=== PATIENT | female | born 1980 | race African-American/Black ===

== ENCOUNTER 2020-03-01 19:23 | Emergency (ER) | payer MEDICAID ==
[~2020-03-01] VITALS: Ht 162.6 cm; Wt 64.0 kg
[2020-03-01] MEDS ORDERED: ASPIRIN 81MG TABLET PO ONE (20:15)
[2020-03-01 20:21] LABS: BASOPHILS % 0.7 % (0.0-2.0); HEMATOCRIT. 35.1 % (36.0-48.0); HEMOGLOBIN. 11.8 g/dL (12.0-16.0); MEAN CORPUSCULAR VOLUME 65.6 fL (81.0-99.0); MEAN PLATELET VOLUME 8.3 fl (7.4-10.4); MONOCYTES % 7.7 % (2.0-8.0); NEUTROPHILS % 65.6 % (40.0-76.0); PLATELET 250 x1000/uL (130-400); RED BLOOD CELL COUNT 5.35 mill/uL (4.2-5.4); RED CELL DISTRIBUTION WIDTH 15.6 % (11.6-14.6)
[2020-03-01 20:28] LABS: CHLORIDE 106 mEq/L (98-107)
[2020-03-01 20:33] LABS: INR 1.8; PARTIAL THROMBOPLASTIN TIME 39.8 sec (23.4-31.0); PROTHROMBIN TIME 18.5 sec (9.6-11.0)
[2020-03-01 21:01] LABS: HCG SCREEN NEGATIVE
[2020-03-01 21:27] LABS: PLATELET ESTIMATE NORMAL
[2020-03-02 03:45] VITALS: BP 135/76
== END 2020-03-02 03:44 | disposition home or self-care (01) ==
LOC: ER 19:30
DX: R07.89 Other chest pain (principal); F31.9 Bipolar disorder, unspecified; Z98.890 Other specified postprocedural states; Z88.0 Allergy status to penicillin
CPT/HCPCS: 36415; 71045; 80053; 81025; 83880; 84484; 84703; 85025; 85610; 85730; 93005; 99285; Z7610

== ENCOUNTER 2023-04-07 04:24 | Emergency (ER) | payer MEDICAID, OTHER ==
[~2023-04-07] VITALS: Ht 157.5 cm; Wt 69.0 kg
[2023-04-07 04:25] VITALS: BP 129/71; PULSE 77; RESP 20; TEMP 97.6; O2SAT 100
[2023-04-07 06:13] LABS: HEMATOCRIT. 36.8 % (36.0-48.0); HEMOGLOBIN. 11.4 g/dL (12.0-16.0); MEAN CORPUSCULAR HEMOGLOBIN 20.2 pg (28.0-32.0); MEAN CORPUSCULAR VOLUME 65.4 fL (81.0-99.0); MEAN PLATELET VOLUME 8.9 fl (7.4-10.4); PLATELET 244 x1000/uL (130-400); RED BLOOD CELL COUNT 5.63 mill/uL (4.2-5.4); RED CELL DISTRIBUTION WIDTH 16.9 % (11.6-14.6); WHITE BLOOD COUNT 6.1 x1000/uL (4.5-11.0)
[2023-04-07 06:15] LABS: DIFFERENTIAL COMMENT 1
[2023-04-07 06:28] LABS: CHLORIDE 107 mEq/L (98-107); INDEX HEMOLYSI 1 (1-3); INDEX ICTERIC 1 (1-4); INDEX LIPEMIC 1 (1-3); POTASSIUM 3.9 mEq/L (3.5-5.1); SODIUM 140 mEq/L (136-145)
[2023-04-07 06:38] LABS: ALANINE AMINOTRANSFERASE 20 IU/L (13-61); ASPARTATE AMINOTRANSFERASE 22 IU/L (15-37); BILIRUBIN TOTAL 0.7 mg/dL (0.1-1.0); CALCIUM 8.8 mg/dL (8.5-10.1); CARBON DIOXIDE 25 mEq/L (21-32); CREATININE 0.9 mg/dL (0.6-1.3); GLUCOSE 89 mg/dL (70-105); PROTEIN TOTAL 7.6 g/dL (6.0-8.3); TROPONIN I HIGH SENSITIVITY 10 ng/L (<54); UREA NITROGEN BLOOD 10 mg/dL (7-21)
[2023-04-07 06:45] LABS: ANISOCYTOSIS 1+; HYPOCHROMASIA 1+; MICROCYTOSIS 3+; PLATELET ESTIMATE NORMAL
== END 2023-04-07 09:23 | disposition left against medical advice (07) ==
LOC: ER 04:24
DX: Z53.21 Procedure and treatment not carried out due to patient leaving prior to being seen by health care provider (principal)
CPT/HCPCS: 36415; 80053; 84484; 85025; 99281

== ENCOUNTER 2023-04-07 12:50 | Emergency (ER) | payer MEDICAID, OTHER ==
[~2023-04-07] VITALS: Ht 154.9 cm; Wt 70.0 kg
[2023-04-07 13:14] VITALS: BP 128/71; PULSE 109; RESP 16; TEMP 99; O2SAT 97
[2023-04-07] MEDS ORDERED: ACETAMINOPHEN 325MG TABLET PO STA (13:18)
[2023-04-07 13:56] LABS: BASOPHILS % 1.2 % (0.0-2.0); EOSINOPHILS % 1.7 % (0.0-5.0); HEMATOCRIT. 33.6 % (36.0-48.0); HEMOGLOBIN. 10.8 g/dL (12.0-16.0); LYMPHOCYTES % 32.6 % (20.0-50.0); MEAN CORPUSCULAR HEMOGLOBIN 20.5 pg (28.0-32.0); MEAN CORPUSCULAR HGB CONC 32.1 g/dL (31.0-37.0); MEAN CORPUSCULAR VOLUME 63.8 fL (81.0-99.0); MEAN PLATELET VOLUME 9.1 fl (7.4-10.4); MONOCYTES % 8.9 % (2.0-8.0); NEUTROPHILS % 55.6 % (40.0-76.0); PLATELET 254 x1000/uL (130-400); RED BLOOD CELL COUNT 5.26 mill/uL (4.2-5.4); RED CELL DISTRIBUTION WIDTH 16.5 % (11.6-14.6); WHITE BLOOD COUNT 5.6 x1000/uL (4.5-11.0)
[2023-04-07 13:57] LABS: ADD RBC MORPHOLOGY YES; DIFFERENTIAL COMMENT 1
[2023-04-07 13:58] LABS: CHLORIDE 109 mEq/L (98-107); INDEX HEMOLYSI 1 (1-3); INDEX ICTERIC 1 (1-4); INDEX LIPEMIC 1 (1-3); POTASSIUM 4.1 mEq/L (3.5-5.1); SODIUM 143 mEq/L (136-145)
[2023-04-07 14:05] LABS: HCG SCREEN NEGATIVE
[2023-04-07 14:06] LABS: ACETAMINOPHEN <2 ug/mL ug/mL (10-30); ASPARTATE AMINOTRANSFERASE 25 IU/L (15-37); CALCIUM 9.5 mg/dL (8.5-10.1); CARBON DIOXIDE 27 mEq/L (21-32); CREATINE KINASE 267 IU/L (26-192); CREATININE 0.9 mg/dL (0.6-1.3); ETHANOL BLOOD < 10 mg/dL (-10); GLUCOSE 92 mg/dL (70-105); PROTEIN TOTAL 7.3 g/dL (6.0-8.3); UREA NITROGEN BLOOD 11 mg/dL (7-21)
[2023-04-07 14:24] LABS: ALANINE AMINOTRANSFERASE 38 IU/L (13-61)
[2023-04-07 14:41] LABS: ANISOCYTOSIS 1+; MICROCYTOSIS 4+; PLATELET ESTIMATE NORMAL
== END 2023-04-07 14:39 | disposition left against medical advice (07) ==
LOC: ER 12:50
DX: R53.1 Weakness (principal); R42 Dizziness and giddiness
CPT/HCPCS: 36415; 80053; 80307; 80320; 80329; 82550; 84703; 85025; 93005; 99284; G0480